=== PATIENT | male | born 1965 | race Caucasian/White ===

== ENCOUNTER 2021-06-05 02:07 | Emergency (ER) | payer OTHER, SELFPAY ==
[2021-06-05 02:14] VITALS: BP 193/118; PULSE 84; RESP 16; TEMP 36.7; O2SAT 97; BMI 27.3
--- NOTE | 2021-06-05 03:01 | CTR_ITS ---
PROCEDURE INFORMATION: Exam: CT Head Without Contrast Exam date and time: 06/05/2021 3:01 AM Age: 56 years old Clinical indication: Pain; Headache TECHNIQUE: Imaging protocol: Computed tomography of the head without contrast. Radiation optimization: All CT scans at this facility use at least one of these dose optimization techniques: automated exposure control; mA and/or kV adjustment per patient size (includes targeted exams where dose is matched to clinical indication); or iterative reconstruction. COMPARISON: No relevant prior studies available. RADIATION DOSE METRICS: Total DLP (mGy-cm): 908 FINDINGS: Brain: Normal. No hemorrhage. Unremarkable white matter. No mass effect. Cerebral ventricles: No ventriculomegaly. Paranasal sinuses: Visualized sinuses are unremarkable. No fluid levels. Mastoid air cells: Visualized mastoid air cells are well aerated. Bones/joints: Unremarkable. No acute fracture. Soft tissues: Unremarkable. CT/CT head wo con* [id number] IMPRESSION: No acute intracranial abnormality.
[2021-06-05 03:02] VITALS: BP 170/106; PULSE 89; RESP 16; O2SAT 98
[2021-06-05 03:10] LABS: Basophils # 0.1 10^3/uL (0.0-0.1); Eosinophils # 0.3 10^3/uL (0.0-0.8); Eosinophils % 4.3 %; Hematocrit 41.6 % (42.0-52.0); Hemoglobin 14.7 g/dL (11.7-16.6); Lymphocytes # 2.2 10^3/uL (0.8-4.8); Lymphocytes % 28.1 %; Mean Corpuscular HGB Conc 35.3 g/dL (30.0-36.0); Mean Corpuscular Hemoglobin 30.8 pg (28.0-34.0); Mean Platelet Volume 9.6 fL (7.4-10.4); Monocytes # 0.5 10^3/uL (0.2-0.9); Monocytes % 6.4 %; Neutrophils # 4.58 10^3/uL (1.8-7.7); Neutrophils % 59.8 %; Nucleated Red Blood Cells % 0 %; Platelet Count 281 10^3/cmm (130-400); Red Blood Count 4.78 10^6/uL (4.1-5.3); White Blood Count 7.7 10^3/uL (4.0-10.0)
[2021-06-05 03:33] LABS: Erythrocyte Sedimentation Rate 8 mm/hr (0-10)
[2021-06-05 03:34] LABS: Alanine Aminotransferase 32 U/L (0-41); Alkaline Phosphatase 63 IU/L (40-130); Anion Gap 15.6 (5-19); Aspartate Amino Transferase 21 U/L (0-40); Blood Urea Nitrogen 12 mg/dL (6-20); C Reactive Protein 1.7 mg/L (0.0-4.9); Calcium 8.3 mg/dL (8.5-10.5); Carbon Dioxide 23 mmol/L (22-29); Chloride 106 mmol/L (98-107); Globulin 3.1 g/dL (1.3-4.6); Glomerular Filtration Rate 100.7 mL/min (90-130); Glucose 192 mg/dL (65-115); Osmolality Calculated 297 mOsm/kg (285-295); Potassium 3.6 mmol/L (3.5-5.1); Sodium 141 mmol/L (136-145); Total Bilirubin 0.7 mg/dL (0.15-1.2); Total Protein 7.1 g/dL (6.6-8.7)
[2021-06-05] MEDS: amlodipine 10 mg Tablet PO (03:36)
[2021-06-05 03:37] VITALS: RESP 16
[2021-06-05] MEDS: labetalol 5 mg/mL SDV 20mL 20 MG IVP (03:37)
[2021-06-05] MEDS: fentaNYL 50 mcg/mL INJ 2mL 100 MCG IVP (03:37)
[2021-06-05] MEDS: enalaprilat 1.25 mg/mL Inj IVP (03:37)
[2021-06-05] MEDS: metoclopramide 5 mg/mL SDV 2 mL 10 MG IVP (03:38)
[2021-06-05] MEDS: valproic acid inj 500 MG in sodium chloride 0.9% 50 ML 55 MG IV (03:39)
[2021-06-05 04:27] LABS: INR 0.96 (0.8-1.2); Partial Thromboplastin Time 31.3 SECONDS (23.9-36.7)
[2021-06-05 04:31] LABS: D Dimer <= 0.27 ug/mIFEU (0-0.59)
[2021-06-05 05:16] VITALS: BP 146/79; PULSE 78; RESP 16; O2SAT 98
--- NOTE | 2021-06-05 16:18 | ED_ITS ---
HPI - Headache General: Chief Complaint: Headache Stated Complaint: Migrane Headache Time Seen by Provider: 06/05/21 02:32 History of Present Illness: HPI Narrative: 56 year old gentleman with a history of hypertension. He does not have a significant migraine headache history. He presents with a headache, light sensitivity, generalized weakness and nausea. His states that he forgot his anti hypertensive in the morning. His blood pressure was high at home. On examination, he is lying on his back in the dark with a wet rag over his eyes. MD elicited complaint: headache Pertinent past history: hypertension Onset (ago): hour(s) Onset description: gradually Location: temporal and occipital Quality & Timing: aching, throbbing, progressively worsening and different than previous headaches Exacerbating factors: other Relieving factors: rest and dark room Context: occurred at rest Associated symptoms: Reports diaphoresis, lightheadedness, nausea, photophobia and weakness (generalized); Deny chest pain, confusion, cough, eye pain, eye redness, fever(s), loss of vision, neck stiffness, sound sensitivity or vomiting Review of Systems Const: Reports: diaphoresis; Denies: fever(s) Card: Reports: lightheadedness; Denies: chest pain GI: Reports: nausea; Denies: abdominal pain, vomiting or diarrhea Neuro: Reports: headache(s); Denies: numbness in extremities, confusion or Slurred speech present Physical Exam Const: COMMON NORMALS: patient oriented x3 GENERAL APPEARANCE: cooperative (minimally), well kempt, well developed and ill appearing (mildly); not frail appearing HENMT: COMMON NORMALS: normocephalic, atraumatic, hearing grossly normal bilaterally, external ears normal and Normal external nose present HEAD & SCALP: normocephalic and atraumatic FACE & SINUS: normal facial exam NOSE: Normal external nose present EXTERNAL EAR: Yes external ears normal MOUTH: Normal oral and palatal mucosa present Eye: COMMON NORMALS: Equal, round and reactive pupils present and EOMs intact bilaterally GENERAL EYE: appearance normal, both eyes and all related structures PUPIL: Yes Equal, round and reactive pupils present DIRECT OPHTHALMOSCOPY: Yes photophobia Chest: COMMONS NORMALS: normal inspection of the chest Resp: COMMON NORMALS: normal respiratory effort and clear to auscultation bilaterally EFFORT & INSPECTION: No respiratory distress AUSCULTATION: clear to auscultation bilaterally Cardio: COMMON NORMALS: regular rate and regular rhythm RATE: regular rate RHYTHM: regular rhythm GI: COMMON NORMALS: Normal to inspection, nondistended, normoactive bowel sounds present and Soft to palpation PALPATION: Yes Soft to palpation Neuro: POONAM COMA SCALE: document GCS findings COMMON NORMALS: patient oriented x3 CRANIAL NERVES: Yes CN normal except as noted COORDINATION/BALANCE: [id number] test normal and [id number] test normal SPEECH: speech normal MOTOR EXAM: Pronator motor function not present COORDINATION: [id number]-[id number]-[id number] test normal and [id number]-ha-prah test normal Psych: APPEARANCE: Yes well kempt Course Vital Signs: Vital signs: Vital Signs Temperature 98.1 F 06/05/21 02:14 Pulse Rate 78 06/05/21 05:16 Respiratory Rate 16 06/05/21 05:16 Blood Pressure 146/79 06/05/21 05:16 Pulse Oximetry 98 06/05/21 05:16 MDM - Headache MDM Narrative: Medical decision making narrative: Laboratory unremarkable, including d dimer as a potential screen for vert art dissection. His neck is not stiff. CT head negative. BP was quite high, and treated here with significant improvement. Suspect this may be inciting event, as he had forgotten to take his antihypertnesive. Migraine cocktail to include- reglan, depacon, fentanyl along with bp control has nearly resolved pain, which is now a 2. Will dc, with warnings to return for return of symptoms or any dizziness/vertigo/vision changes in particular. Lab Data: Labs: Lab Results 06/05/21 06/05/21 06/05/21 02:45 02:45 02:45 WBC 7.7 10^3/uL 10^3/ uL (4.0-10.0) RBC 4.78 10^6/uL 10^6 /uL (4.1-5.3) Hgb 14.7 g/dL g/dL (11.7-16.6) Hct 41.6 % L % (42.0-52.0) MCV 87.0 fl fl (80-94) MCH 30.8 pg pg (28.0-34.0) MCHC 35.3 g/dL g/dL (30.0-36.0) RDW 12.0 % L % (12.1-15.1) Plt Count 281 10^3/cmm 10^3 /cmm (130-400) MPV 9.6 fL fL (7.4-10.4) Neut % (Auto) 59.8 % % Lymph % (Auto) 28.1 % % [place] % (Auto) 6.4 % % Eos % (Auto) 4.3 % % Baso % (Auto) 1.0 % % Neut # (Auto) 4.58 10^3/uL 10^3 /uL (1.8-7.7) Lymph # (Auto) 2.2 10^3/uL 10^3/ uL (0.8-4.8) [place] # (Auto) 0.5 10^3/uL 10^3/ uL (0.2-0.9) Eos # (Auto) 0.3 10^3/uL 10^3/ uL (0.0-0.8) Baso # (Auto) 0.1 10^3/uL 10^3/ uL (0.0-0.1) Nucleated RBC % (a uto) 0 % % Nucleated RBCs # 0.0 /100WBC /100W BC ESR 8 mm/hr mm/hr (0-10) PT INR APTT D-Dimer Sodium 141 mmol/L mmol/L (136-145) Potassium 3.6 mmol/L mmol/L (3.5-5.1) Chloride 106 mmol/L mmol/L (98-107) Carbon Dioxide 23 mmol/L mmol/L (22-29) Anion Gap 15.6 (5-19) BUN 12 mg/dL mg/dL (6-20) Creatinine 0.8 mg/dL mg/dL (0.7-1.2) GFR Calculation 100.7 mL/min mL/m in (90-130) Glucose 192 mg/dL H mg/dL (65-115) Calculated Osmolal ity 297 mOsm/kg H mOs m/kg (285-295) Calcium 8.3 mg/dL L mg/dL (8.5-10.5) Total Bilirubin 0.7 mg/dL mg/dL (0.15-1.2) AST 21 U/L U/L (0-40) ALT 32 U/L U/L (0-41) Alkaline Phosphata se 63 IU/L IU/L (40-130) C-Reactive Protein 1.7 mg/L mg/L (0.0-4.9) Total Protein 7.1 g/dL g/dL (6.6-8.7) Albumin 4.0 g/dL g/dL (3.5-5.2) Globulin 3.1 g/dL g/dL (1.3-4.6) 06/05/21 04:04 WBC RBC Hgb Hct MCV MCH MCHC RDW Plt Count MPV Neut % (Auto) Lymph % (Auto) [place] % (Auto) Eos % (Auto) Baso % (Auto) Neut # (Auto) Lymph # (Auto) [place] # (Auto) Eos # (Auto) Baso # (Auto) Nucleated RBC % (a uto) Nucleated RBCs # ESR PT 13.10 SECONDS SEC ONDS (12.1-14.9) INR 0.96 (0.8-1.2) APTT 31.3 SECONDS SECO NDS (23.9-36.7) D-Dimer <= 0.27 ug/mIFEU ug/mIFEU (0-0.59) Sodium Potassium Chloride Carbon Dioxide Anion Gap BUN Creatinine GFR Calculation Glucose Calculated Osmolal ity Calcium Total Bilirubin AST ALT Alkaline Phosphata se C-Reactive Protein Total Protein Albumin Globulin Discharge Plan Discharge Patient Disposition: Home Clinical Impression: Headache, Hypertensive urgency Condition: Stable Discharge Orders: Discharge ED (Routine); Ordered 06/05/21 Ordered By: Kevin Isabel Patient Instructions: Hypertension (ED), General Headache (ED) Activity Restrictions/Additional Instructions: Return for worsening headache, mental status changes, trouble with speech, weakness, passing out, other concerning symptoms. Take your blood pressure medication as you would normally. Check your blood pressure twice daily for the next 3 to 4 days and report numbers to your physician. Coding Level of Care Code ED Electrotherapist for Jimmie Terry
== END 2021-06-05 05:23 | disposition home or self-care (01) ==
PROVIDERS: Emergency Provider Emergency Medicine
DX: R51.9 Headache, unspecified (principal); I16.0 Hypertensive urgency
CPT/HCPCS: 70450; 80053; 85025; 85378; 85610; 85651; 85730; 86140; 96365; 96366; 96375; 99284; J2765; J3010; J3490

== ENCOUNTER → 2022-03-26 09:10 | Outpatient (BNVA) | payer BC, SELFPAY | PROVIDERS: PCP Family Medicine; Visit Provider Family Medicine | DX: I10 Essential (primary) hypertension (principal); E03.9 Hypothyroidism, unspecified; E11.9 Type 2 diabetes mellitus without complications | CPT/HCPCS: 80053; 80061; 83036; 84443 ==